=== PATIENT | female | born 1990 | race Caucasian/White ===

== ENCOUNTER 2020-04-11 04:10 | Inpatient (IN) | payer BC, SELFPAY ==
[2020-04-11] VITALS (93 sets, daily range): BP systolic 92–135; BP diastolic 53–85; PULSE 56–157; RESP 16; TEMP 36.6–37.9; O2SAT 97–100; BMI 29.5
--- NOTE | 2020-04-11 04:10 | LDADM ---
This patient, Yolanda Pop, was admitted to Labor/Delivery/Recovery 107 on 04/11/20 at 04:10. Plans for labor, pain management and were discussed with patient. Patient/family oriented to hospital policies and general routines including ID bracelet, bed and alarms, visiting hours, pain management, procedures, bathroom and other care routines, personal items, smoking policy, room service/diet and guest tray routines, infant security routines, and visiting hours. Patient/Family are encouraged to report perceived risks to care and to ask questions if they do not understand what they are told or what they should do. See OBIX for further documentation.
[2020-04-11 04:47] LABS: Basophils Percent Auto 0.4 % (0.2-1.2); Eosinophils Absolute Auto 0.1 K/mm3 (0-0.3); Eosinophils Percent Auto 0.6 % (0-4.4); Hematocrit 33.1 % (37.0-47.0); Hemoglobin 11.1 g/dL (12.0-15.0); Immature Granulocyte Absolute 0.07 K/mm3 (0.00-0.031); Immature Granulocyte Percent A 0.6 % (0-0.5); Lymphocytes Percent Auto 21.1 % (18.3-44.2); Mean Corpuscular HGB Conc 33.5 g/dl (32-36); Mean Corpuscular Hemoglobin 29.1 pg (26-34); Mean Corpuscular Volume 86.6 fl (80-100); Monocytes Absolute Auto 0.9 K/mm3 (0.1-0.6); Monocytes Percent Auto 8.2 % (2.6-8.5); Neutrophils Absolute Auto 7.5 K/mm3 (1.3-6.7); Neutrophils Percent Auto 69.1 % (45.5-73.1); Platelet Count Result 231 k/mm3 (150-375); Red Blood Count 3.82 M/mm3 (4.2-5.4); Red Cell Distribution Width 13.2 % (11.5-14.5); White Blood Count 10.9 K/mm3 (4.5-10.0)
[2020-04-11] MEDS: LACTATED RINGERS 1,000 ML 999 ML IV CONT (05:25)
[2020-04-11] MEDS: LACTATED RINGERS 1,000 ML 125 ML IV CONT ×2 (05:33→11:42)
--- NOTE | 2020-04-11 05:58 | WPDANESEPPF ---
Anes - Initial Pre Proc Eval Procedure: labor epidural Date/Time: 04/11/20 05:58 Surgeon: Solomon Frederick MD Pre Op Diagnosis: labor pain Pre Op Diagnosis: Contractions Patient Data Age: 29 Gender: F Height: 1.68 m Weight: 83 kg Last Vital Signs Temp 36.9 C 04/11/20 05:00 Pulse 73 04/11/20 05:55 BP 126/77 04/11/20 05:55 Pulse Ox 98 04/11/20 05:54 Allergies Allergy/AdvReac Type Severity Reaction Status Date / Time No Known Allergies Allergy Verified 04/11/20 05:03 Home Medications Medication Instructions Recorded Confirmed Type PNV cmb#95-ferrous fumarate-FA 1 tablet PO DAILY 03/12/20 04/11/20 History [] Laboratory Tests 04/11/20 04/11/20 04/11/20 04:42 04:42 04:42 WBC 10.9 K/mm3 H K/mm3 (4.5-10.0) RBC 3.82 M/mm3 L M/mm3 (4.2-5.4) Hgb 11.1 g/dL L g/dL (12.0-15.0) Hct 33.1 % L % (37.0-47.0) MCV 86.6 fl fl (80-100) MCH 29.1 pg pg (26-34) MCHC 33.5 g/dl g/dl (32-36) RDW 13.2 % % (11.5-14.5) Plt Count 231 k/mm3 k/mm3 (150-375) MPV 11.0 fl H fl (7.4-10.4) Immature Gran % (Auto) 0.6 % H % (0-0.5) Neut % (Auto) 69.1 % % (45.5-73.1) Lymph % (Auto) 21.1 % % (18.3-44.2) [place] % (Auto) 8.2 % % (2.6-8.5) Eos % (Auto) 0.6 % % (0-4.4) Baso % (Auto) 0.4 % % (0.2-1.2) Lymph # (Auto) 2.30 K/mm3 K/mm3 (0.9-3.2) [place] # (Auto) 0.9 K/mm3 H K/mm3 (0.1-0.6) Eos # (Auto) 0.1 K/mm3 K/mm3 (0-0.3) Baso # (Auto) 0.0 K/mm3 K/mm3 (0.0-0.1) Abs Immat Gran (auto) 0.07 K/mm3 H K/mm3 (0.00-0.031) Absolute Neuts (auto) 7.5 K/mm3 H K/mm3 (1.3-6.7) Absolute Nucleated RBC 0.0 K/mm3 K/mm3 (0.0-0.012) Nucleated RBC % 0.0 % % (0.0-0.2) RPR Pending Blood Type B Positive Antibody Screen Negative Patient hx anesthesia problems: none Family hx anesthesia problems: none [facility] Family History Family History Mother Crohn's disease Psoriasis Social History Social History Smoking status: Never smoker Substance use: never Spiritual care concerns: No Anes - Eval Final PreProcedure Day of Procedure 04/11/20 05:58 Patient weight: overweight Heart: regular rate and rhythm Lungs: clear to auscultation and normal air movement Airway: Mallampati scale Neurological: alert and oriented ASA classification: II Emergent: no Anesthetic plan: proceed Anesthesia type and monitoring: regional epidural and standard monitoring Informed Consent: The patient's anesthetic plan and its attendant risks and benefits were discussed with the patient/family/POA. Questions were solicited and answers provided to the satisfaction of the patient/family/POA.
--- NOTE | 2020-04-11 06:40 | PM.IMHP ---
H&P: HPI History of Present Illness Chief complaint: Contractions Narrative: Yolanda Pop is a 29 year old female whose last menstrual period was 07/03/2019, EDC is 04/08/2020, presents at 40 and 3 7th weeks gestation with spontaneous rupture membranes about 0430. Her has been uncomplicated. She has an early ultrasound confirming dates. For group B strep screen is negative. Review of Systems Review of Systems: All systems reviewed & are unremarkable except as noted in HPI and below PMFSH Family History Family History Mother Crohn's disease Psoriasis Social History Social History Smoking status: Never smoker Substance use: never Spiritual care concerns: No Meds Home Medications and Allergies Home Medications Medication Instructions Recorded Confirmed Type PNV cmb#95-ferrous fumarate-FA 1 tablet PO DAILY 03/12/20 04/11/20 History [] Allergies Allergy/AdvReac Type Severity Reaction Status Date / Time No Known Allergies Allergy Verified 04/11/20 05:03 Vital Signs Vital Signs - 24 hr 04/11/20 04:43 04/11/20 04:46 04/11/20 05:00 Temperature 98.4 F Pulse Rate 60 59 L Blood Pressure 128/70 128/70 Pulse Oximetry 04/11/20 05:01 04/11/20 05:16 04/11/20 05:31 Temperature Pulse Rate 64 61 56 L Blood Pressure 126/71 128/75 127/71 Pulse Oximetry 04/11/20 05:39 04/11/20 05:44 04/11/20 05:46 Temperature Pulse Rate 80 70 68 Blood Pressure 135/78 132/81 131/84 Pulse Oximetry 99 99 04/11/20 05:49 04/11/20 05:52 04/11/20 05:53 Temperature Pulse Rate 66 69 Blood Pressure 129/74 122/76 Pulse Oximetry 100 04/11/20 05:54 04/11/20 05:55 04/11/20 05:58 Temperature Pulse Rate 73 72 Blood Pressure 126/77 124/74 Pulse Oximetry 98 04/11/20 05:59 04/11/20 06:01 04/11/20 06:04 Temperature Pulse Rate 78 79 Blood Pressure 124/70 124/71 Pulse Oximetry 99 98 04/11/20 06:07 04/11/20 06:09 04/11/20 06:11 Temperature Pulse Rate 75 75 Blood Pressure 124/71 115/67 Pulse Oximetry 98 04/11/20 06:14 04/11/20 06:19 04/11/20 06:21 Temperature Pulse Rate 84 Blood Pressure 114/68 Pulse Oximetry 98 98 04/11/20 06:24 04/11/20 06:29 04/11/20 06:31 Temperature Pulse Rate 76 Blood Pressure 101/53 L Pulse Oximetry 98 97 04/11/20 06:34 04/11/20 06:39 Temperature Pulse Rate Blood Pressure Pulse Oximetry 97 98 Exam Const: General: no acute distress Eyes: General: appearance normal, both eyes and all related structures Neck: Neck: supple and no JVD Thyroid: thyroid normal Resp: Effort & Inspection: normal respiratory effort Auscultation: clear to auscultation bilaterally Cardio: Rate: regular rate Rhythm: regular rhythm GI: Inspection: normal to inspection (Gravid uterus with irregular contractions) Auscultation: normoactive bowel sounds : General: Yes other (Cervix by RN exam 2cm with gross rupture of membranes. FHTs were reassurin) Skin: General skin exam: no rashes or lesions noted Extrem: General: normal to inspection and no edema Psych: Mental Status: mental status grossly normal Affect: normal affect H&P: Results Labs Labs: Short CBC 04/11/20 Range/Units 04:42 WBC 10.9 H (4.5-10.0) K/mm3 Hgb 11.1 L (12.0-15.0) g/dL Hct 33.1 L (37.0-47.0) % Plt Count 231 (150-375) k/mm3 Assessment and Plan Additional Plan Impression: Term in active labor with spontaneous rupture membranes Plan: Spontaneous vaginal delivery is expected. Epidural is in and working. Consider adding Pitocin if contractions do not increase
[2020-04-11 06:57] LABS: Rapid Plasma Reagin Non-Reactive (NonReactive)
--- NOTE | 2020-04-11 10:57 | PM.OBPNVD ---
OB - PN: Subj Subjective Date/time seen: 04/11/20 10:57 Interval history: cx 5 by rn exam fhts reassuring consider pit OB - PN: Obj Data Labs CBC & Chem 7: 04/11/20 04:42 Labs: Laboratory Results - last 24 hr 04/11/20 04/11/20 04/11/20 04:42 04:42 04:42 WBC 10.9 H RBC 3.82 L Hgb 11.1 L Hct 33.1 L MCV 86.6 MCH 29.1 MCHC 33.5 RDW 13.2 Plt Count 231 MPV 11.0 H Immature Gran % (Auto) 0.6 H Neut % (Auto) 69.1 Lymph % (Auto) 21.1 [place] % (Auto) 8.2 Eos % (Auto) 0.6 Baso % (Auto) 0.4 Lymph # (Auto) 2.30 [place] # (Auto) 0.9 H Eos # (Auto) 0.1 Baso # (Auto) 0.0 Abs Immat Gran (auto) 0.07 H Absolute Neuts (auto) 7.5 H Absolute Nucleated RBC 0.0 Nucleated RBC % 0.0 RPR Non-reactive Blood Type B Positive Antibody Screen Negative OB - PN A/P Time Spent With Patient Time: Total time spent is greater than 50% in coordination of care (as documented) at patient's floor/unit and/or counseling patient:
[2020-04-11] MEDS: OXYTOCIN 30 UNITS/NS 500 ML 30 UNITS/500 ML BAG 999 UNITS IV CONT (11:10)
--- NOTE | 2020-04-11 12:14 | P.PNOB_ITS ---
OB - PN: Subj Subjective Date/time seen: 04/11/20 12:14 Interval history: cx 6 by rn exam fhts reassuring OB - PN: Obj Data Labs CBC & Chem 7: 04/11/20 04:42 Labs: Laboratory Results - last 24 hr 04/11/20 04/11/20 04/11/20 04:42 04:42 04:42 WBC 10.9 H RBC 3.82 L Hgb 11.1 L Hct 33.1 L MCV 86.6 MCH 29.1 MCHC 33.5 RDW 13.2 Plt Count 231 MPV 11.0 H Immature Gran % (Auto) 0.6 H Neut % (Auto) 69.1 Lymph % (Auto) 21.1 [place] % (Auto) 8.2 Eos % (Auto) 0.6 Baso % (Auto) 0.4 Lymph # (Auto) 2.30 [place] # (Auto) 0.9 H Eos # (Auto) 0.1 Baso # (Auto) 0.0 Abs Immat Gran (auto) 0.07 H Absolute Neuts (auto) 7.5 H Absolute Nucleated RBC 0.0 Nucleated RBC % 0.0 RPR Non-reactive Blood Type B Positive Antibody Screen Negative OB - PN A/P Time Spent With Patient Time: Total time spent is greater than 50% in coordination of care (as documented) at patient's floor/unit and/or counseling patient:
--- NOTE | 2020-04-11 17:16 | PM.OBPRVD ---
OB - Delivery Note Procedure Delivery date: 04/11/20 Procedure: Intrapartal events: None Induction method: none Delivery augmentation: pitocin Delivery monitor: external FHT Route of delivery: Episiotomy description: None Laceration description: Vaginal - 2nd Degree Delivery repair: vicryl Specimen: No Estimated blood loss (mL): 357 Anesthesia type: Epidural Disposition: floor Baby Date of : 04/11/20 Time of : 17:01 Weeks of gestation at delivery: 40 Infant gender: Female Weight (pounds): 8 Weight (ounces): 2 presentation: vertex position: Left Occiput Anterior Placenta delivery description: Spontaneous cord vessel description: 3 Vessels score one minute: 8 score five minutes: 9
[2020-04-11] MEDS: ONDANSETRON INJ 4 MG/2 ML VIAL IV PUSH (17:27)
[2020-04-11] MEDS: IBUPROFEN 600 MG TABLET PO (19:12)
[2020-04-11] MEDS: BENZOCAINE 20% AER SPR (*SP) 56 GM CAN 1 SPRAY TOPICAL (19:12)
[2020-04-11] MEDS: WITCH HAZEL 40 PADS 1 PAD TOPICAL (19:12)
[2020-04-11] MEDS: LANOLIN (LANSINOH) 7.5 GM CREAM 1 APPLIC TOPICAL (19:12)
--- NOTE | 2020-04-11 19:48 | OBPPTRN ---
[facility] Support person present. Oriented to unit, room, information board, rooming in, admission packet and security measures. Patient verbalizes understanding.
[2020-04-12 06:01] LABS: Hematocrit 23.2 % (37.0-47.0); Hemoglobin 7.6 g/dL (12.0-15.0)
--- NOTE | 2020-04-12 06:41 | PM.OBPNVD ---
OB - PN: Subj Subjective Date/time seen: 04/12/20 06:41 Patient comments: no complaints and pain well controlled baby status: doing well and nursing well OB - PN: Obj Data Labs CBC & Chem 7: 04/12/20 05:33 Labs: Laboratory Results - last 24 hr 04/11/20 04/12/20 04:42 05:33 Hgb 7.6 L D Hct 23.2 L RPR Non-reactive OB - PN A/P Plan day: 1 Plan: routine care Time Spent With Patient Time: Total time spent is greater than 50% in coordination of care (as documented) at patient's floor/unit and/or counseling patient: Time with patient: less than 15 minutes Review of Systems Review of Systems: All systems reviewed & are unremarkable except as noted in HPI and below Exam Const: General: no acute distress Eyes: General: appearance normal, both eyes and all related structures Neck: Neck: supple and no JVD Thyroid: thyroid normal Resp: Effort & Inspection: normal respiratory effort Auscultation: clear to auscultation bilaterally Cardio: Rate: regular rate Rhythm: regular rhythm GI: Inspection: non-distended GI Palp: Yes Soft to palpation, No Tenderness to palpation present (GI) and No Guarding due to palpation present (GI) Auscultation: normal bowel sounds : General: Yes bladder normal to palpation External Female Exam: normal external appearance Speculum Exam - Vagina: normal vaginal discharge and No vaginal bleeding Speculum Exam - Cervix: nontender Bimanual exam- vagina & uterus: bladder normal to palpation and No Cervical tenderness present OB/external & speculum: No vaginal bleeding Skin: General skin exam: no rashes or lesions noted Extrem: General: normal to inspection and no edema Psych: Mental Status: mental status grossly normal Affect: normal affect
[2020-04-12] MEDS: MULTIVIT/MIN/PREN/FOL AC/IRON TABLET 1 TAB PO (07:22)
[2020-04-12] MEDS: DOCUSATE SODIUM 100 MG CAPSULE PO ×2 (07:22→15:55)
[2020-04-12] MEDS: POLYSACCHARIDE IRON COMPLEX 150 MG CAPSULE PO ×2 (07:23→15:55)
[2020-04-12 08:40] VITALS: BP 117/70; PULSE 77; RESP 16; TEMP 36.9; O2SAT 99
--- NOTE | 2020-04-12 08:51 | WPDANLDPN2 ---
Anes-Prog Note L&D Date/Time: 04/12/20 08:51 Comfortable throughout: labor and delivery Neuraxial method: epidural Epidural/Spinal procedure site: clean & non-tender Neuro status: Neuro function grossly intact. Cardiovascular status: normal Respiratory status: normal Airway patency: baseline Mental status: baseline Post-Op hydration status: normal Vital Signs: Last Vital Signs Temp 98.7 F 04/11/20 20:45 Pulse 87 04/11/20 20:45 Resp 16 04/11/20 20:45 BP 102/64 04/11/20 20:45 Pulse Ox 97 04/11/20 20:45 I/O: Intake & Output 04/11/20 04/12/20 04/12/20 23:59 07:59 15:59 Intake Total 1200 Output Total 122 Balance 1078 Post-procedural complaints: none Patient feedback: Patient satisfied with anesthetic care.
--- NOTE | 2020-04-12 11:00 | PC.NURSE ---
Consulted with patient, mother reports infant has been sleepy for some feedings. Mother feels does not open wide for latch and she has tenderness with feedings. Reviewed feeding cues, frequencies, duration of feedings, feeding elimination flow sheet, and signs of adequate intake. Demonstrated stimulation techniques to wake for feeding. Assisted with infant to breast. Reviewed positioning/alignment in cross cradle, holding breast in U hold and guided asymmetrical latch on. Discussed rational for each. Infant was able to latch correctly. nursed eagerly, with steady draws and frequent swallowing noted. Reviewed signs of a correct latch, effective nursing and suck swallow ratio. will pull back during feeding with bottom lip rolled in and mother reports tenderness. Demonstrated how to adjust latch more deeply while feeding and pull bottom lip out. was able to maintain latch without discomfort to mother. Nipple care reviewed. Instructed mother to call out for RN assistance if she is unable to latch for feeding or she has discomfort with nursing. Instructed feeding should be initiated three hours from start of last feeding or if feeding cues are noted before. Mother voiced understanding of information shared. Mother is feeding as required and waking to feed if needed. Discussed effective with meeting outcomes for weight, output, jaundice and feeding frequencies. Mother states she feels confident to continue effective at home. Reviewed transition to breast milk, signs of adequate intake, and engorgement/relief. Instructed to call ICP if intake/output less than required. Reviewed regular medications mother is taking. Information provided per Kand[facility]. Reviewed community resources on the [facility] website and in the Mom/Baby guide. Information on outpatient services provided. Mother has no further questions at this time.
[2020-04-12] MEDS: WITCH HAZEL 40 PADS 1 PAD TOPICAL (15:58)
[2020-04-12 19:20] VITALS: BP 124/72; PULSE 84; RESP 18; TEMP 36.7; O2SAT 100
--- NOTE | 2020-04-12 22:41 | PC.NURSE ---
Patient viewed the discharge video Mother & Baby Care, The First Two Weeks . Patient was given the opportunity and encouraged to ask questions. Patient verbalized understanding of information shared and has been given the mother/baby guide for home reference.
--- NOTE | 2020-04-13 07:18 | PM.DS ---
DS: Admitting Diagnosis Admitting Diagnosis Admitting Diagnosis: term iup DS: Summary Time Spent with Patient Time attestation: Total time spent providing and/or coordinating discharge services: Exam Const: General: no acute distress Eyes: General: appearance normal, both eyes and all related structures Neck: Neck: supple and no JVD Thyroid: thyroid normal Resp: Effort & Inspection: normal respiratory effort Auscultation: clear to auscultation bilaterally Cardio: Rate: regular rate Rhythm: regular rhythm GI: Inspection: non-distended GI Palp: Yes Soft to palpation, No Tenderness to palpation present (GI) and No Guarding due to palpation present (GI) Auscultation: normal bowel sounds : General: Yes bladder normal to palpation External Female Exam: normal external appearance Speculum Exam - Vagina: normal vaginal discharge and No vaginal bleeding Speculum Exam - Cervix: nontender Bimanual exam- vagina & uterus: bladder normal to palpation and No Cervical tenderness present OB/external & speculum: No vaginal bleeding Skin: General skin exam: no rashes or lesions noted Extrem: General: normal to inspection and no edema Psych: Mental Status: mental status grossly normal Affect: normal affect Discharge Plan Discharge Attending physician on discharge: Solomon Frederick Discharging Clinician: Solomon Frederick Patient Disposition: Home, Self-Care Activity: may shower, no straining, may drive after 2 weeks and pelvic rest Diet: heart healthy Wound Care Instructions: follow printed instructions Patient Instructions: Antibiotic Form Stand Alone Forms: General Discharge Information Follow-up/Referrals: Solomon Frederick MD [Physician] - Discharge Medications: Continued PNV cmb#95-ferrous fumarate-FA [] 28 mg iron- 800 mcg Tablet 1 tablet PO DAILY RF: 0 Date of admission: 04/11/20 04:10 Primary Care Provider: PHYSICIAN,[employer] Admitting Provider: Solomon Frederick Attending physician on admission: Solomon Frederick
--- NOTE | 2020-04-13 07:19 | PM.OBPNVD ---
OB - PN: Subj Subjective Date/time seen: 04/13/20 07:19 Interval history: cx 6 by rn exam fhts reassuring Patient comments: no complaints and pain well controlled baby status: doing well and nursing well OB - PN: Obj Data Labs CBC & Chem 7: 04/12/20 05:33 OB - PN A/P Time Spent With Patient Time: Total time spent is greater than 50% in coordination of care (as documented) at patient's floor/unit and/or counseling patient: Review of Systems Review of Systems: All systems reviewed & are unremarkable except as noted in HPI and below Exam Const: General: no acute distress Eyes: General: appearance normal, both eyes and all related structures Neck: Neck: supple and no JVD Thyroid: thyroid normal Resp: Effort & Inspection: normal respiratory effort Auscultation: clear to auscultation bilaterally Cardio: Rate: regular rate Rhythm: regular rhythm GI: Inspection: non-distended GI Palp: Yes Soft to palpation, No Tenderness to palpation present (GI) and No Guarding due to palpation present (GI) Auscultation: normal bowel sounds : General: Yes bladder normal to palpation External Female Exam: normal external appearance Speculum Exam - Vagina: normal vaginal discharge and No vaginal bleeding Speculum Exam - Cervix: nontender Bimanual exam- vagina & uterus: bladder normal to palpation and No Cervical tenderness present OB/external & speculum: No vaginal bleeding Skin: General skin exam: no rashes or lesions noted Extrem: General: normal to inspection and no edema Psych: Mental Status: mental status grossly normal Affect: normal affect
--- NOTE | 2020-04-13 07:30 | PC.NURSE ---
PT introductions made and plan of care discussed per post , pain management, breast feeding, daily care activities and pending discharge to home. PT verbalized understanding of such care.
[2020-04-13 10:32] VITALS: BP 121/83; PULSE 95; RESP 18; TEMP 37.1; O2SAT 96
[2020-04-13] MEDS: DOCUSATE SODIUM 100 MG CAPSULE PO (10:32)
[2020-04-13] MEDS: MULTIVIT/MIN/PREN/FOL AC/IRON TABLET 1 TAB PO (10:32)
[2020-04-13] MEDS: IBUPROFEN 600 MG TABLET PO (10:33)
[2020-04-13] MEDS: POLYSACCHARIDE IRON COMPLEX 150 MG CAPSULE PO (10:35)
[2020-04-13] MEDS: MEASLES,MUMPS,RUBELLA VACCINE 0.5 ML VIAL SUB-Q (10:38)
--- NOTE | 2020-04-13 11:20 | PC.NURSE ---
PT received discharge instructions per protocol and verbalized understanding of such care.
--- NOTE | 2020-04-13 11:51 | PC.NURSE ---
PT discharged to home ambulatory accompanied by spouse and to waiting car. Follow up appts confirmed
[2020-04-15 08:28] VITALS: BP 131/81; PULSE 76; RESP 20; TEMP 37.1
== END 2020-04-13 11:51 | disposition home or self-care (01) | DRG 807 ==
LOC: ANHLDR 04:35 → ANHOB2 19:55
PROVIDERS: Admitting Provider Student in an Organized Health Care Education/Training Program; Visit Provider Obstetrics & Gynecology
DX: O36.8330 Maternal care for abnormalities of the fetal heart rate or rhythm, third trimester, not applicable or unspecified (principal); Z37.0 Single live birth; Z3A.40 40 weeks gestation of pregnancy; O70.1 Second degree perineal laceration during delivery
CPT/HCPCS: 36415; 84112; 85014; 85018; 85025; 86592; 86850; 86900; 86901; 90710; A9270; J2405; J2590; J2795; J7120

== ENCOUNTER 2020-07-08 12:08 | Outpatient (RCR) | payer BC, SELFPAY ==
--- NOTE | 2020-07-08 14:10 | PC.NURSE ---
IN 1100 OUT 1145 HISTORY: Pt. delivered at [facility] at 39 weeks. had no complications after delivery. Mother had no complications after delivery. Infant is now approx. 3 months old. Infant appears to be well cared for. has been seen by ICP as scheduled. last seen IPC as scheduled on 2 month visit. Mother reports: 's feeding pattern has changed within the last few weeks concerning mother infant may not be getting enough with . Infant previously fed every 2-3 hours for 30 minutes and slept 6-8 hours at night. Infant is now feeding every 2 hours for 10-15 minutes and is not sleeping past 5 hours at night. Infant has a few episodes of on and off during feedings on left breast with some coughing and heavy gulping. Infant feeds well on right and is able to maintain latch. Mother wishes: Clarification of feeding status. Currently at 8 wets per day and 4 yellow seedy stools per day. weight: 8#2 Last Weight: at 2 months 13#1 Pre feeding weight: 6406 Post feeding weight: 6477 OBSERVATION: Discussed signs of heavy let down, with mother's report of feeding. Discussed current feeding pattern, reviewing growth spurts and possible reasoning for feeding changes. Mother is able to independently latch infant deeply to breast, infant is fussy with latching to left breast taking several attempts before maintaining latch. Mother reports this is the normal process with left breast. Once is at breast and begins with steady rhythmic draws, she begins to pull back and choke. Infant is fussy and will return with same on and off status, feeding for aprox. 15 minutes. pre and post of aprox. 3 oz intake during that feeding. Mother feels more assured infant is getting what she is needing with . Suggested mother self express (preferred) or pump for 1-2 minutes before latching, as this will release milk and possible help with heavy let down. Offered suggestions to lay back once is latched or to lean to the side with infant head up in a slight sitting position to assist infant with control of suck swallow during let down. Reviewed feeding patters will change throughout infant journey and with growth spurts. Suggested if mother is concerned with infant intake, to keep tract of output, as it should basically remain steady and infant should be satisfied after feeding resting aprox. 2-3 hours between most feedings. PLAN: Mother will continue to feed infant on demand and encourage to keep feeding effectively while at breast and work with techniques for heavy let down. Mother will call with further questions or concerns.
== END 2020-08-15 09:08 | disposition home or self-care (01) ==
LOC: ANHOBOP 12:08
PROVIDERS: Visit Provider Pediatrics
DX: Z39.1 Encounter for care and examination of lactating mother (principal)
CPT/HCPCS: 99212; G0463